=== PATIENT | female | born 2000 | race Caucasian/White ===

== ENCOUNTER → 2018-09-02 14:00 | Outpatient (CLI) | payer OTHER, SELFPAY ==
[2018-09-03 14:07] LABS: Chlamydia Trachomatis by PCR Negative (Negative); Neisserai gonorrhoeae by PCR Negative (Negative); Probe Check PASS; Sample Adequacy Control PASS; Specimen Processing Control PASS
== END ==
PROVIDERS: Visit Provider Obstetrics & Gynecology
DX: Z11.3 Encounter for screening for infections with a predominantly sexual mode of transmission (principal)
CPT/HCPCS: 87491; 87591

== ENCOUNTER → 2020-01-20 | Outpatient (CLI) | payer OTHER, SELFPAY ==
[2020-01-20 12:28] LABS: Chlamydia Trachomatis by PCR Negative (Negative); Neisserai gonorrhoeae by PCR Negative (Negative); Probe Check PASS; Sample Adequacy Control PASS; Specimen Processing Control PASS
== END | disposition home or self-care (01) ==
LOC: LABSPEC 09:28
PROVIDERS: Referring Provider Obstetrics & Gynecology; Visit Provider Obstetrics & Gynecology
DX: Z12.4 Encounter for screening for malignant neoplasm of cervix (principal); Z11.3 Encounter for screening for infections with a predominantly sexual mode of transmission
CPT/HCPCS: 87491; 87591; 88175; G0145

== ENCOUNTER → 2020-06-08 | Outpatient (CLI) | payer OTHER, SELFPAY | END | disposition home or self-care (01) | LOC: MTDU 06-10 14:04 | PROVIDERS: Referring Provider Obstetrics & Gynecology; Visit Provider Obstetrics & Gynecology | DX: Z11.59 Encounter for screening for other viral diseases (principal) | CPT/HCPCS: 87635; C9803; U0003 ==

== ENCOUNTER 2020-06-14 06:05 | Inpatient (IN) | payer SELFPAY ==
--- NOTE | 2020-06-13 21:54 | PCM.HP.BLA ---
History and Physical Date of Admission: 06/14/20 [facility] ANTEPARTUM RECORD - HISTORY AND PHYSICAL (06/13/2020) Name: ALEXA MILLARD History of This : This is a 20-year-old G3, P2 who presents for her third at 39+ weeks gestation. care has otherwise been uneventful. OB Physician: [facility] [place]'s Physician: PED SEED CUTTER ...................................................................... : 2000 Age: 20 Address: [address] [place] [address] Phone: (h) [phone] ([phone] Insurance Carrier: [facility] [id number] Emergency Contact: CAROLINA BISHOP [phone] ...................................................................... Final MARIO: 06/18/20 By Ultrasound: 19 w 5 days PARITY: (G-Total Pregnancies P-Fullterm,Premature,Induced AB,Spont AB, Ectopics, Multiple,Living) MARIO CONFIRMATION: By LMP: 09/27/19 By First Ultrasound Exam: 06/18/20 Final MARIO: 06/18/20 OB PROBLEM LIST: Prior CS --LTCCS; face presentation; plan R-LTCCS ALLERGIES: No Known Drug Allergies MEDICATIONS: Calcium 500 + D 500 mg (1,250 mg)-200 unit tablet qd evening primrose oil 500 mg capsule qd Multivitamins 28 mg iron-800 mcg tablet 1 qd SOCIAL HISTORY: Smoking - denies smoking Alcohol Use - denies drinking Diet - balanced Diet Lifestyle - low stress lifestyle Exercise - active Employer - Unemployed Job Description - Housewife Illicit Drug Use - denies use of street drugs Sexual Activity - Spouse-Sig Other Name - Christopher Millard Spouse-Sig Other Occupation - 2 Year Olds Preschool Teacher Children Name(s) - Bony '16, Fernando '19 PRIOR DELIVERY HISTORY DEL DATE GEST LAB WT LB WT OZ TYPE ANES LABOR TX 05 May 15 42 6 7 9 C-Sec Spinal No ANTEPARTUM FLOW CHART VISIT RTC FU F F UT U U DATE WK MD WKS HT PN HR M SS BP ED WT UT GL D EF ST __ ____ ___ __ __ ___ __ __ __ ___ __ __ __ ___ __ May JMW 3 37 + + 98/58 tr 122 tr - 01 May JMW 1 36 + + 92/56 0 122 tr - Apr JMW 1 35 VA + + 112/62 0 124 - - 11 Apr JMW 2 34 + + 94/54 sl 123 tr - Apr 29 JMW 3 31 + + 90/50 0 122 - - Mar 27 JMW 3 28 + + 100/58 0 121 tr - Mar 24 JMW 3 25 + + 96/54 0 119 tr - Jan 16 JMW 4 19 U+ + 98/60 0 118 - - ANTEPARTUM NOTE(S): Jun 07 2020: Good FM, Consents signed for R/C-S at [facility] May 31 2020: Doing Well, Good FM May 24 2020: Doing Well, LARQ form signed May 10 2020: Doing Well Apr 19 2020: feeling well. Mar 29 2020: Doing Well, 1hrGTT/CBC today Mar 08 2020: Glucola/Instructions Given,Good FM Jan 28 2020: US OK, change EDC COMPREHENSIVE ANTEPARTUM NOTE(S): Jun 07 2020: Alexa presents here today for PNV and consents signed for R- C/S at [facility] with VIOLET. Amyid order written and faxed to [phone] as well as copy given to pt. and information to call and schedule . CHRIS Jan 19 2020: Alexa presents for her Missed Menses. She is a 19yo G 3, P 2 with hx of 2prior C-sections. LMP is approx 09/27/19, and MARIO by LMP 07/04/20. Pt has been taking a PNV for several yrs and sts she was breast feeding at conception but has weaned. She is reporting +FM for the past 1-2wks so no UPT done today. NOB packet given. No questions or concerns voiced. JT Jan 19 2020: ok REVIEW OF SYSTEMS: GENERAL - Denies fever, or chills SKIN - Denies rash, new skin lesions, or change in moles EYES - Denies blurred vision, or change in visual acuity EARS - Denies ear pain, or difficulty hearing NOSE - Denies nasal congestion, discharge, or bleeding MOUTH - Denies sore throat, or difficulty swallowing NECK - Denies pain or swelling RESPIRATORY - Denies shortness of breath, cough, wheezing CARDIOVASCULAR - Denies palpitations, chest pain, orthopnea, PND, peripheral edema, syncope or claudication GASTROINTESTINAL - Denies nausea, vomiting, diarrhea, constipation, Denies abdominal pain, melena and or bright red blood GENITOURINARY - Denies dysuria, frequency of urination, urgency, or hesitancy MUSCULOSKELETAL - Denies joint or muscle pain, or back pain NEUROLOGICAL - Denies localized numbness, weakness, or tingling PSYCHIATRIC - Denies depression, anxiety, substance abuse or suicide attempts ENDOCRINE - Denies heat or cold intolerance, weight loss or gain, increasing thirst HEMATO-IMMUNOLOGIC - Denies easy bruising, bleeding, oral ulcerations or recurrent infections GENETICS SCREENING: Age 35+ years: No Thalassemia: No Neural Tube Defect: No Down Syndrome: No MUNA-SACHS: No Sickle Cell Disease: No Hemophilia: No Musc. Dystrophy: No Cystic Fibrosis: No-declines screening Mihai Chorea: No Mental Retardation: No Fragile X: No Other genetic: No Other defects: No SABs/still births: No Drugs since LMP: No Comments: 2sisters with heart defects, () INFECTION HISTORY: High risk AIDS: No High risk Hepatitis: No Exposed to TB: No Exposed to Herpes: No Rash/viral illness since LMP: No History of STD: No MENSTRUAL HISTORY: PAST SUMMARY: PARITY: 1. Total Pregnancies............ 3 2. Full Term Pregnancies........ 2 3. Premature.................... 0 4. Abortions - Induced.......... 0 5. Abortions - Spontaneous...... 0 6. Ectopics..................... 0 7. Multiple Births.............. 0 8. Living Children.............. 2 PAST #1: Date of :.................. 05/04/16 Gestation Weeks:................ 42 Length of labor(hours):......... 6 Sex:............................ M Weight-lbs:............... 7 Weight-oz:................ 9 Type of Delivery:............... C-Sect Type of Anesthesia:............. Spinal Place of Delivery:.............. [facility] Treatment of Labor?:.... No Comment: PHYSICAL EXAMINATION General Appearence: 20 yo female in no acute distress Vital Signs: AF, VSS Heart: RRR without rubs or gallops Lungs: CTA x 2 Breasts: deferred Abdomen: gravid Pelvis: Cervix: Not examined Presentation: cephalic Station: Not examined Fetus: Size: AGA Movement: present Heart: present Labs for : ALEXA MILLARD since 09/22/2019 ORDER DATEIN DESCRIPTION VALUE UNITS RANGE A+ COMMENT CORONAVIRUS 19, YAHAIRA SENDOUT 06/08/20 NOTE Original Ordering Provider: Carolina Plascencia COVID-19,YAHAIRA Not Detected Not Detected This nucleic acid amplification test was developed and its performance characteristics determined by [facility]. Nucleic acid amplification tests include PCR and TMA. This test has not been FDA cleared or approved. This test has been authorized by FDA under an Emergency Use Authorization (EUA). This test is only authorized for the duration of time the declaration that circumstances exist justifying the authorization of the emergency use of in vitro diagnostic tests for detection of SARS-CoV-2 virus and/or diagnosis of COVID-19 infection under section 564(b)(1) of the Act, 21 U.S.C. 360bbb-3(b) (1), unless the authorization is terminated or revoked sooner. When diagnostic testing is negative, the possibility of a false negative result should be considered in the context of a patient's recent exposures and the presence of clinical signs and symptoms consistent with COVID-19. An individual without symptoms of COVID-19 and who is not shedding SARS-CoV-2 virus would expect to have a negative (not detected) result in this assay. GLUCOSE CHALLENGE 50GM 1 HOUR 03/29/20 NOTE Original Ordering Provider: CAROLINA PLASCENCIA GLUCOSE CHALLENGE 50GM 1 HOUR GLUCOSE CHALLENGE 50 GMS 1 HOUR GLUCOSE 1HR 99 mg/dl 70 - 140 Reviewed by CAROLINA CBC + DIFF 03/29/20 NOTE Original Ordering Provider: CAROLINA PLASCENCIA CBC + DIFF CBC-COMPLETE BLOOD COUNT WBC 9.1 x 10EE3/UL 4.5 - 10.8 RBC 3.20 x 10EE6/UL 4.10 - 5.30 L HEMOGLOBIN 11.0 g/dl 12.0 - 16.0 L HEMATOCRIT 30.2 % 34.0 - 46.0 L MCV 94 fl 80 - 99 MCH 34 pg 27 - 33 H MCHC 37 X10 3 32 - 36 H RDW/CV 12.6 % 12.0 - 15.6 PLATELET 231 x10EE3/UL 150 - 450 MPV 8.6 fl 6.6 - 10.5 AUTOMATED DIFFERENTIAL NEUT % 75.0 % 46.0 - 76.0 LYMPH % 17.7 % 20.0 - 45.0 L MONOS % 6.1 % 0.0 - 10.0 EO % 0.4 % 0.0 - 7.0 BASO % 0.8 % 0.0 - 2.0 LYMPH # 1.60 x10EE3/UL 0.80 - 2.80 NEUT # 6.80 x10EE3/UL 1.50 - 7.10 MONO # 0.60 x10EE3/UL 0.20 - 1.00 EO # 0.00 x10EE3/UL 0.00 - 0.50 BASO # 0.10 x10EE3/UL 0.00 - 0.10 MANUAL DIFF N/A MORPHOLOGY N/A Reviewed by CAROLINA [facility] OB Labs 01/19/20 HIV Test negative (Scanned) Negative Reviewed by CAROLINA HEPATITIS C AB IA W/CONFIRM [CCL] 01/19/20 NOTE Original Ordering Provider: CAROLINA PLASCENCIA HEPATITIS C AB IA Negative NEGAT [facility] [address] [place] [address] Beny Johnson III, M.D. [id number] Reviewed by ALESIA JASON 3 [CCL] 01/19/20 NOTE Original Ordering Provider: CAROLINA PLASCENCIA RPR Non Reactive NR HEPATITIS B SURF. AG Negative NEGAT RUBELLA IGG AB, QUAL Positive NEGAT A Sample is considered positive for IgG antibodies to rubella virus. A positive result indicates previous exposure to Rubella virus or vaccination. RUBELLA IGG AB 2.07 Indexlue Index values are interpreted as follows: Negative specimens <0.90 Equivocol specimens 0.90 to 0.99 Positive specimens >0.99 The magnitude of the measured result is not indicative of the amount of antibody present. [id number] [place] [address] Beny Johnson III, M.D. [id number] Reviewed by ALESIA BB TYPE 01/19/20 NOTE Original Ordering Provider: CAROLINA HURLEY TYPE TYPE, Rh, AND SCREEN ABO A RH POS ANTIBODY SCR negative Reviewed by ALESIA URINALYSIS 01/19/20 NOTE Original Ordering Provider: CAROLINA PLASCENCIA URINALYSIS URINALYSIS SPECIMEN TYPE UNSPECIFIED COLOR p.yel NORMAL: YELLOW CLARITY sl.cloudy NORMAL: CLEAR PH 8 NORMAL: 5.0-8.0 PROTEIN NEG NORMAL: NEGATIVE GLUCOSE NORM NORMAL: NORMAL KETONE NEG NORMAL: NEGATIVE BILIRUBIN NEG NORMAL: NEGATIVE BLOOD NEG NORMAL: NEGATIVE UROBILINOG NORM NORMAL: NORMAL SP GRAVITY 1.010 NORMAL: 1.010-1.030 NITRITE NEG NORMAL: NEGATIVE LEUKOCYTES NEG NORMAL: NEGATIVE MICROSCOPIC NOT INDICATED Reviewed by ALESIA CBC + DIFF 01/19/20 NOTE Original Ordering Provider: CAROLINA PLASCENCIA CBC + DIFF CBC-COMPLETE BLOOD COUNT WBC 7.2 x 10EE3/UL 4.5 - 10.8 RBC 3.53 x 10EE6/UL 4.10 - 5.30 L HEMOGLOBIN 11.8 g/dl 12.0 - 16.0 L HEMATOCRIT 33.8 % 34.0 - 46.0 L MCV 96 fl 80 - 99 MCH 34 pg 27 - 33 H MCHC 35 X10 3 32 - 36 RDW/CV 13.1 % 12.0 - 15.6 PLATELET 291 x10EE3/UL 150 - 450 MPV 8.4 fl 6.6 - 10.5 AUTOMATED DIFFERENTIAL NEUT % 76.6 % 46.0 - 76.0 H LYMPH % 17.9 % 20.0 - 45.0 L MONOS % 4.7 % 0.0 - 10.0 EO % 0.4 % 0.0 - 7.0 BASO % 0.4 % 0.0 - 2.0 LYMPH # 1.30 x10EE3/UL 0.80 - 2.80 NEUT # 5.50 x10EE3/UL 1.50 - 7.10 MONO # 0.30 x10EE3/UL 0.20 - 1.00 EO # 0.00 x10EE3/UL 0.00 - 0.50 BASO # 0.00 x10EE3/UL 0.00 - 0.10 MANUAL DIFF N/A MORPHOLOGY N/A Reviewed by ALESIA PAP TEST I-G 01/19/20 NOTE Original Ordering Provider: Carolina Plascencia DIAGN . NEGATIVE FOR INTRAEPITHELIAL LESION OR MALIGNANCY. ADEQ . Satisfactory for evaluation. Endocervical and/or squamous metaplastic cells (endocervical component) are present. PERFORM . Alexa Dobbs Energy Audit Advisor (ASCP) TEST METHOD . This liquid based ThinPrep(R) pap test was screened with the use of an image guided system. Performed at: [address] [id number] Model Builder: Lexi Funez MD, Phone: [phone] COMM . . PAPSMR . The Pap smear is a screening test designed to aid in the detection of premalignant and malignant conditions of the uterine cervix. It is not a diagnostic procedure and should not be used as the sole means of detecting cervical cancer. Both false-positive and false-negative reports do occur. Reviewed by CAROLINA CAMEJO/MUNIR [facility] BY PCR 01/19/20 NOTE Original Ordering Provider: Carolina [facility] PCR Negative Negative NG BY PCR Negative Negative Reviewed by ALESIA Panel-Thyroid 01/19/20 Thyroid Stimulating Hormone scanned micro IU/ml 0.4-5.5 Reviewed by CAROLINA Impression /Plan: 39+ week intrauterine for repeat section. Preparations in progress for delivery.
[2020-06-14] VITALS (22 sets, daily range): BP systolic 88–107; BP diastolic 34–71; PULSE 59–98; RESP 10–18; TEMP 36.2–37.2; O2SAT 97–100; BMI 22.9
[2020-06-14] MEDS: Lactated Ringers 1,000 ML 999 ML IV (06:20)
[2020-06-14] MEDS: Acetaminophen 500 MG Tablet 1000 MG PO ×3 (06:36→20:23)
[2020-06-14 06:38] LABS: Absolute Lymphocyte Count 2.19 X10^3/uL (0.83-4.51); Absolute Neutrophil Count 7.4 X10^3/uL (2.0-7.7); Basophil# 0.02 X10^3/uL; Basophil% 0.2 % (0-1); Eosinophil# 0.07 X10^3/uL; Eosinophils% 0.7 % (0-5); Hematocrit 35.3 % (37-47); Hemoglobin 12.4 g/dL (12.0-15.0); Lymphocyte # 2.19 X10^3/ul (4.0); Lymphocyte % 21.2 % (19-41); Mean Corp Hgb Conc 35.1 g/dL (32-36); Mean Corpuscular Hgb 33.7 pg (27.0-32.0); Mean Corpuscular Volume 95.9 fL (81-99); Mean Platelet Vol. 10.4 fl (6.2-12.0); Monocyte# 0.55 X10^3/uL; Monocyte% 5.3 % (0-10); NRBC Flagged by Analyzer 0 % (0-5); Neutrophil # 7.44 X10^3/uL (2.7-7.7); Neutrophil % 72.1 % (47-70); Platelet Count 198 K/mm3 (150-450); RBC Distribution Width CV 12.8 % (11.6-14.6); RBC Distribution Width SD 44.9 fl (35.1-43.9); Red Blood Count 3.68 M/mm3 (4.2-5.4); White Blood Count 10.3 K/mm3 (4.4-11.0)
[2020-06-14] MEDS: Lactated Ringers 1,000 ML 150 ML IV (07:22)
[2020-06-14] MEDS: Sodium Citrate/Citric Acid 30 ML UDC PO (07:22)
[2020-06-14] MEDS: Cefazolin 2 GM in 0.9% Normal Saline 100 ML IV (07:28)
--- NOTE | 2020-06-14 07:37 | OP.PCM_ITS ---
Delivery Classification: Scheduled Final MARIO: 06/18/20 Final MARIO Source: US <20 weeks Gestational age: 39 Weeks and 3 Days medical receptionist medical assistant: Veronica Mitchell Type of Anesthesia:: General - Endotracheal Date of Procedure: 06/14/20 Pre-Operative Diagnosis: Prior Section x2 Post-Operative Diagnosis: Prior Section x2 Description of Procedure: Surgeon: Lazaro Jamison MD, FACOG Anesthesia: Veronica Coteat, MULTI SKILLED OPERATOR Procedure: Repeat Low Transverse Cervical Caesarean Section Findings: Viable female with Apgars of 9/9 in occiput anterior presentation with clear amniotic fluid and normal three-vessel placenta. Indication: This is a 20-year-old who presents for her third at 39+ weeks gestation. care has otherwise been uneventful. The patient has been counseled regarding the risk and indications of this procedure including the possibility of bleeding infection and injury to surrounding structures such as bowel bladder. All questions were answered. Procedure: Patient was taken to the operating room where spinal anesthesia was attempted but not successful. Therefore the patient was given general anesthesia after she was prepped and draped in usual sterile fashion and a Cuenca catheter was placed. The abdomen was entered through the patient's prior Pfannenstiel incision and peritoneum was entered bluntly. After developing a bladder flap on the lower uterine segment a low transverse incision was made on the uterus and head was easily delivered onto the operative field the nose mouth and oropharynx were bulb suctioned. Subsequently a viable female was born with Apgars of 9/9. The infant was noted to cry move all extremities v igorously on the operative field. The umbilical cord was doubly clamped and ligated and handed to the nursery personnel who were present for the delivery. Placenta was delivered and noted to be 3 vessels and normal. Uterus was exteriorized and remaining placental tissue was removed. The uterus was noted to be rather atonic and Methergine gentle was given and the uterus was then closed in 2 layers first with running locked 0 Vicryl suture followed by a second imbricating layer with 0 Vicryl suture. 0 Vicryl suture was then used in a horizontal mattress interrupted fashion to affect final hemostasis of the uterine incision line. Normal fallopian tubes and ovaries were visualized and the uterus was returned to the pelvis. Hemostasis was noted and rectus abdominis muscles were reapproximated in the midline with interrupted Number 0 Vicryl suture in a horizontal mattress fashion. Fascia was closed with running Number 1 PDS Strata fix suture. Subcutaneous tissue was irrigated with copious amounts of saline solution and then closed with running 3-0 Vicryl suture. Skin was closed with 4-0 monocryl suture in a running subcuticular fashion. Steri strips and a Mepilex dressing were placed across the incision. The patient tolerated the procedure well and was taken to the recovery room in satisfactory condition. Sponge, needle, and instrument counts were all reportedly correct. EBL was 750 cc. Ancef 2 gms IV was given prior to the procedure. Spicemen to Pathology: None Complications: None Amniotic Fluid Description: Clear Placenta Disposition: [facility] Drain: Cuenca to straight drain Fluids Replaced: Crystalloid Cord Entanglement: None Esitmated Blood Loss (ml): 500 cc Gender: Female (1 minute): 9 (5 minute): 9 Antibiotic Given: Ancef 2 grams IV x1 Pt instructed on risks of surgery: Bleeding, Infection, Injury to surrounding structure(s) including bowel and bladder Complications: None - Admit VTE Documentation VTE Present on Admission: Yes VTE Mechan Device Prophylaxis: SCD's
--- NOTE | 2020-06-14 07:39 | DCINST_ITS ---
Discharge Diet: No Restrictions Discharge Activity: May not drive while taking narcotic pain medications., May Shower, May Take a Tub Bath May resume sexual activity in: 4-6 weeks Lifting Restrictions: 20 pounds Additional Activity Instructions:: Nothing in the vagina for 4-6 weeks. You may return to work/school in 6 weeks. Call your doctor if your incision/area has: Continuous Slow Oozing, Sudden Increased Bleeding, Increased Pain/ Swelling, Increased Redness, Foul Smelling Discharge Call your doctor if you observe: Fever of 101 or Higher, Inability to urinate, Inability to have a bowel movement, Using more than one pad per hour Additional Instructions: If you experience any of the following, contact your healthcare provider. * Bleeding that soaks a pad every hour for 2 hours * Fever 100.4 or higher * Unrelieved incision or abdominal pain * Swelling, redness, discharge or bleeding from your incision or episiotomy site * Your incision begins to separate * Problems urinating (including inability to urinate or burning while urinating). * Visual changes * Severe headache * Flu-like symptoms * Pain or redness in one of both of your breasts * Pain, warmth, tenderness or swelling in your legs, especially the calf area * Frequent nausea and vomiting * Symptoms of depression or anxiety If you experience any of the following, call 911 or go to the nearest Emergency Room. * Chest pain * Problems breathing * Seizure activity * Partial or complete paralysis of a body part, slurred speech, weakness or drooping of the face, or a sudden inability to walk or hold your balance Allergies/Adverse Reactions: Allergies chlorhexidine Adverse Reaction (Verified 06/14/20 06:15) Rash Medications to take at Discharge Calcium Carbonate [Calcium] 500 mg PO DAILY 06/14/20 Docusate Sodium [Colace] 100 mg PO BID PRN PRN #60 cap 06/14/20 Oxycodone [Oxyir] 5 mg PO Q6H PRN PRN 7 Days #14 tab 06/14/20 Pnv No.95/Ferrous Fum/Folic AC [ Caplet] 1 cap PO DAILY 06/14/20 The following prescriptions were given: Docusate Sodium [Colace] 100 mg PO BID PRN PRN #60 cap PRN Reason: Constipation Transmission Status: Pending to [facility] Oxycodone [Oxyir] 5 mg PO Q6H PRN PRN 7 Days #14 tab PRN Reason: Pain Score 6-1010 Transmission Status: Sent to [facility] Follow-Up: Call to make an appointment with your doctor for an incision check in 1-2 weeks. You will also need a 6 week post- follow up appointment. Test results from this visit will be discussed in further detail at your follow- up appointment, if applicable. Please Follow Up With: Lazaro Jamison MD - [phone] When: Call to make an appointment for an incision check in 2 weeks. Primary Care Physician: Kamilah Marvin MD [Primary Care Provider] -
[2020-06-14] MEDS: Methylergonovine 0.2 MG/ML Ampul IM (07:58)
[2020-06-14] MEDS: Oxytocin 30 units/NS 500 ml 30 UNITS/500 ML IV.SOLN 167 UNITS IV (08:50)
[2020-06-14] MEDS: Lactated Ringers 1,000 ML 100 ML IV (12:00)
[2020-06-14] MEDS: Ketorolac 30 MG/ML Syringe IV ×2 (14:02→20:23)
[2020-06-14] MEDS: Cefazolin 1 GM/50 ML BAG IV ×2 (15:04→23:22)
[2020-06-14] MEDS: 0.9% Saline Lock 10 ML Syringe IV (20:23)
[2020-06-15] MEDS: 0.9% Saline Lock 10 ML Syringe IV ×2 (00:07→08:16)
[2020-06-15 01:00] VITALS: PULSE 75; RESP 14; O2SAT 100
[2020-06-15] MEDS: Ketorolac 30 MG/ML Syringe IV ×2 (02:02→08:15)
[2020-06-15] MEDS: Acetaminophen 500 MG Tablet 1000 MG PO ×2 (02:03→08:16)
[2020-06-15 02:05] VITALS: PULSE 86; RESP 18; O2SAT 96
[2020-06-15 04:10] VITALS: BP 88/51; PULSE 79; RESP 14; TEMP 36.2; O2SAT 96
[2020-06-15 05:41] VITALS: PULSE 62; RESP 16; O2SAT 100
[2020-06-15 05:49] LABS: Hemoglobin 8.2 g/dL (12.0-15.0); Mean Corp Hgb Conc 34.2 g/dL (32-36); Mean Corpuscular Hgb 33.7 pg (27.0-32.0); Mean Corpuscular Volume 98.8 fL (81-99); Mean Platelet Vol. 10.3 fl (6.2-12.0); Platelet Count 159 K/mm3 (150-450); RBC Distribution Width CV 13.1 % (11.6-14.6); Red Blood Count 2.43 M/mm3 (4.2-5.4); White Blood Count 11.9 K/mm3 (4.4-11.0)
--- NOTE | 2020-06-15 07:24 | PN.OBGYN_ITS ---
Subjective: Patient without complaints. Tolerating diet well. Breast-feeding is going well. Minimal vaginal bleeding noted. Feeling great and wants to go home later today if possible. Denies any orthostatic changes. Objective: Mepilex dressing covering wound which was dry. Hemoglobin okay and as expected for atony of uterus during surgery subsequently resolved. Good urine output. - Physical Exam Vitals/I&O's: Vital Signs Temp Pulse Resp BP Pulse Ox 97.1 F L 62 16 88/51 L 100 06/15/20 04:10 06/15/20 05:41 06/15/20 05:41 06/15/20 04:10 06/15/20 05:41 Oxygen Delivery Method Room Air Weight: 125 lb 9.6 oz Body Mass Index (BMI) 22.9 Intake and Output for Last 24 Hours 06/13/20 06/14/20 06/15/20 23:59 23:59 23:59 Intake Total 2322.5 / 2322.5 50 / 50 Output Total 2700 / 2700 600 / 600 Balance -377.5 / -377.5 -550 / -550 Laboratory Results 06/14/20 06:20: Blood Type A POSITIVE, Antibody Screen NEGATIVE 06/15/20 05:30: WBC 11.9 H, RBC 2.43 L, Hgb 8.2 L, Hct 24.0 L, MCV 98.8, MCH 33.7 H, MCHC 34.2, RDW Std Deviation 47.0 H, RDW Coeff of Dora 13.1, Plt Count 159, MPV 10.3 Current Medications Acetaminophen (Tylenol) 1,000 mg PO Q6H SALUD Last Admin: 06/15/20 02:03 Dose: 1,000 mg Documented by: Bisacodyl (Dulcolax) 10 mg RECTAL UD PRN PRN Reason: If no BM Diphenhydramine HCl (Benadryl) 25 mg PO Q6H PRN PRN PRN Reason: ITCHING Stop: 06/15/20 09:21 Hydrocortisone (Hytone) 1 applic TOPICAL TID PRN PRN; Protocol PRN Reason: Discomfort Hydromorphone HCl (Dilaudid Inj) 0.5 mg IV Q3H PRN PRN PRN Reason: Pain Score 6-10/10 Naloxone HCl 4 mg/ Dextrose 504 mls @ 0 mls/hr IV .Q0M PRN; Protocol PRN Reason: To maintain Resp. rate >10 Naloxone HCl 4 mg/ Dextrose 504 mls @ 0 mls/hr IV .Q0M PRN; Protocol PRN Reason: To maintain Resp. rate >10 Ibuprofen (Motrin) 600 mg PO Q6H [facility] Ketorolac Tromethamine (Toradol (Bkc)) 30 mg IV Q6H [facility] Stop: 06/15/20 08:01 Last Admin: 06/15/20 02:02 Dose: 30 mg Documented by: Methylergonovine Maleate (Methergine) 0.2 mg IM X1 PRN PRN Reason: Uterine Atony Last Admin: 06/14/20 07:58 Dose: 0.2 mg Documented by: Naloxone HCl (Narcan) 0.02 mg IV Q1M PRN PRN Reason: RR <10 and pt unresponsive Naloxone HCl (Narcan) 0.02 mg IV Q1M PRN PRN Reason: RR< 10 AND PT UNRESPONSIVE Ondansetron HCl (Zofran) 4 mg IV Q4H PRN PRN PRN Reason: Nausea Oxycodone HCl (Oxyir) 5 - 10 mg PO Q4H PRN PRN PRN Reason: Pain Score 4-10/10 Oxycodone HCl (Oxyir) 5 mg PO Q6H PRN PRN PRN Reason: Pain Score 6-10/10 Stop: 06/15/20 08:57 Prochlorperazine Edisylate (Compazine Iv) 10 mg IV Q6H PRN PRN PRN Reason: NAUSEA Senna/Docusate Sodium (Senokot-S, Christine-Colace) 1 - 2 tablet PO DAILY [facility] Last Admin: 06/14/20 10:40 Dose: Not Given Documented by: Simethicone (Mylicon) 80 mg PO PCHS PRN PRN Reason: Indigestion/stomach pain Sodium Chloride () 5 - 15 ml IV UD PRN PRN Reason: SALINE FLUSH Last Admin: 06/15/20 00:07 Dose: 10 ml Documented by: Medical Necessity - Tobacco Use Smoking Status: Never smoker Assessment/Plan Doing well postoperative day #1 status post repeat . Will release to home later today if present good progress continues.
[2020-06-15 08:00] VITALS: BP 92/42; PULSE 74; RESP 16; TEMP 36.1; O2SAT 99
[2020-06-15] MEDS: Senna/Docusate Sodium 1 Tablet PO (10:33)
[2020-06-15 14:41] VITALS: BP 101/48; PULSE 72; RESP 16; TEMP 36.1; O2SAT 99
== END 2020-06-15 15:20 | disposition home or self-care (01) | DRG 788 ==
PROVIDERS: Admitting Provider Obstetrics & Gynecology; Referring Provider Obstetrics & Gynecology; Visit Provider Obstetrics & Gynecology
PROC: 10D00Z1 Extraction of Products of Conception, Low, Open Approach (ICD-10-PCS; CPT 59514; principal; 2020-06-14 07:15)
DX: O34.211 Maternal care for low transverse scar from previous cesarean delivery (principal); O62.2 Other uterine inertia; Z3A.39 39 weeks gestation of pregnancy; Z37.0 Single live birth
CPT/HCPCS: 85025; 86850; 86900; 86901; 99218; J7120; A4216; G0378; J2405